=== PATIENT | female | born 1995 | race Caucasian/White ===

== ENCOUNTER 2016-08-12 10:44 | Inpatient (IN) | payer OTHER ==
[2015-06-14 14:26] VITALS: BMI 26.5
--- NOTE | 2016-08-12 17:09 | HISTPHYS ---
- HISTORY OF PRESENT ILLNESS Age: 21 Estimated Due Date: 08/17/16 Gestational Age: 39 : 2 Para: 1 Patient Presents to:: Labor & Delivery Presents for:: Induction of Labor Current : GBS + - REVIEW OF SYSTEMS ROS Negative Except As Marked: Yes ROS Negative except as marked Reports/Denies: Reports: Movement. Denies: Leaking Fluid, Shortness of Breath, Fever, Chills, Chest Pain, Cardiovascular Complaints, Respiratory Complaints, GI Comlaints Pain: Reports: None - ALLERGIES Allergies Allergy/AdvReac Type Severity Reaction Status Date / Time No Known Allergies Allergy Verified 07/21/16 19:41 - PAST MEDICAL HISTORY Reports: No Significant History - PAST SURGICAL HISTORY Reports: None - SOCIAL HISTORY Smoking Status: Former smoker Social History: Denies: Amphetamine Use, Alcohol Use, Barbiturate Use, Benzodiazipine Use - GENITOURINARY HISTORY Gynecologic History: Reports: Sexually Transmitted Infections (chlamydia during ) 1 Sex: Female Weight: 6-4 Weeks Gestation: 39 Complications with or Delivery: Reports: Other (see Comment) /Delivery Problems Comment (if applicable): OLIGO - PHYSICAL EXAM Vital Signs:: Temperature: () HR: () RR: () BP: () Pulse Ox: () GENERAL: Alert, Oriented, No Acute Distress CARDOVASCULAR/CHEST: Normal RESPIRATORY: Normal - CTA ABDOMEN: Gravid, Non-Tender GENITOURINARY: Normal EXTERMITIES: Moves All Extremeties PRISCILLA'S SIGN: negative: Bilateral Dilation (cm): 2.5 Effacement (%): 60 Station: -4 Heart Rate: 145 Category I Contractions: Irregular Membranes: Intact - ASSESSMENT (ACTIVE PROBLEMS) (1) 39 weeks gestation of Acute Z3A.39 - 39 WEEKS GESTATION OF (2) Elective induction of labor planned Acute [id number] - - PLAN Admit, Consent, Monitoring, GBS Prophylaxis, Induction of Labor (in AM. will hold off on cervidil due to cervical dilation.), Labs, Pain Management
[2016-08-12] MEDS ORDERED: LR 500 ML IV PRN (17:14)
[2016-08-12] MEDS ORDERED: SODIUM CHLORIDE 0.9% 3 ML FLUSH FLUSH PRN (17:14)
[2016-08-12] MEDS ORDERED: DINOPROSTONE 10 MG VAGINAL INSERT PV ONE (17:14)
[2016-08-12] MEDS ORDERED: SODIUM CHLORIDE 0.9% 3 ML FLUSH FLUSH SCH ×2 (17:14→18:00)
[2016-08-12] MEDS ORDERED: Aluminum;Magnesium;Simethicone 30 ML UDC PO PRN (17:14)
[2016-08-12] MEDS ORDERED: ACETAMINOPHEN 325 MG/TAB TABLET PO PRN (17:14)
[2016-08-12] MEDS ORDERED: ZOLPIDEM TARTRATE 5 MG TAB PO PRN (17:14)
[2016-08-12] MEDS ORDERED: BUTORPHANOL 1 MG/ML VIAL IV PRN (17:14)
[2016-08-12] MEDS: LR 1,000 ML IV SCH (17:30)
[2016-08-12] MEDS ORDERED: Vaccine Screening Complete SCH (18:00)
[2016-08-12] MEDS ORDERED: PENICILLIN IV ONE (18:00)
[2016-08-12] MEDS ORDERED: NS IV ONE (18:00)
[2016-08-12 18:05] LABS: AUTOMATED BASOPHIL 0.6 % (0-2); AUTOMATED EOSINOPHIL 0.7 % (0-5); AUTOMATED LYMPH 20.2 % (17-44); AUTOMATED MONOCYTE 6.9 % (3-10); AUTOMATED NEUTROPHIL 71.6 % (45-76); MPV 11.3 fL (7.4-10.4)
[2016-08-12] MEDS ORDERED: LIDOCAINE 1% 30 ML VIAL (PRESERVATIVE FREE) ONE (18:17)
[2016-08-12] MEDS ORDERED: OXYTOCIN 1,000 ML IV ONE (18:17)
[2016-08-12] MEDS ORDERED: NS IV SCH (22:00)
[2016-08-12] MEDS ORDERED: PENICILLIN IV SCH (22:00)
[2016-08-13] MEDS: LR 1,000 ML IV SCH ×2 (00:51→09:14)
[2016-08-13] MEDS ORDERED: OXYTOCIN 1,000 ML IV SCH (06:00)
[2016-08-13] MEDS ORDERED: AMPICILLIN 2 GM in NS 100 ML IV ONE (06:00)
--- NOTE | 2016-08-13 08:43 | OBGYNPROG ---
- Exam Vital Signs: Temperature: 97.8 F (08/13/16 00:49) HR: 78 (08/13/16 00:49) RR: 20 (08/13/16 00:49) BP: 117/59 (08/13/16 00:49) Pulse Ox: () Heart Rate: 145 Reactive Contraction Pattern: Regular Dilation (cm): 4 Effacement (%): 80 Station: -2 Membranes: AROM Amniotic Fluid: Clear - Plan Continue Present Management
[2016-08-13] MEDS ORDERED: Fentanyl/Bupivacaine 100 ML EPI ONE (09:16)
[2016-08-13] MEDS: AMPICILLIN 1 GM in NS 100 ML IV SCH ×2 (09:57→14:00)
[2016-08-13] MEDS ORDERED: LIDOCAINE 2% 10 ML (PRESERVATIVE FREE) VIAL INF ONE (10:00)
[2016-08-13] MEDS ORDERED: ONDANSETRON HCL 4 MG/2 ML VIAL IV PRN (10:21)
[2016-08-13] MEDS ORDERED: LR 500 ML IV PRN (10:21)
[2016-08-13] MEDS ORDERED: LR 500 ML IV ONE (10:21)
[2016-08-13] MEDS ORDERED: NALOXONE 0.4 MG/ML AMPULE IV PRN (10:21)
[2016-08-13] MEDS ORDERED: METOCLOPRAMIDE 10 MG/2 ML VIAL IV PRN (10:21)
[2016-08-13] MEDS ORDERED: EPHEDrine 50 MG/ML VIAL IV PRN (10:21)
[2016-08-13] MEDS ORDERED: DIPHENHYDRAMINE 50 MG/ML VIAL IV PRN (10:21)
--- NOTE | 2016-08-13 10:23 | HIM.ANES ---
Anesthesia Evaluation & Plan Diagnoses: labor pain Consented Procedure: labor epidural Surgeon:: Ronit Martínez - Focused Review of Systems Cardiac History: No: Hx Hypertension, Hx Cardiac Disorders EKG Rhythm: Sinus Rhythm HEENT: Yes: Hx Vision Problem (GLASSES), Other HEENT Problems Respiratory: No: Hx Asthma Gastrointestinal: No: Hx Liver disease, Hx Gastrointestinal Disorders Neurological/Musculoskeletal: No: HX Cerebrovascular Accident, Hx Neurological Disorders Psychological: No Hx Mental/Emotional Disorders Blood/Autoimmune: No: Hx Blood Transfusions, Hx AIDS, Hx Hepatitis (type) Smoking Status: Former smoker Past Social History: Denies: Amphetamine Use, Alcohol Use, Barbiturate Use, Benzodiazipine Use - Focused Physical Exam NPO since: after Midnight Mallampati: Class II Thyromental Distance: Greater than 3 Neck: Full Range of Motion Cardiovascular/Chest: Normal (RRR no mumurs or rubs.) Respiratory: Lungs clear. negative: Rhonchi, Wheezing Any problems with anesthesia, including nausea and vomiting?: No Any relatives with a history of Malignant Hyperthermia?: No Does patient have a history of Malignant Hyperthermia?: No Beta Shazia given (if appropriate): N/A Does the patient have a history of Motion Sickness-: No Other: Problem List Problem Status Onset 39 weeks gestation of Acute Elective induction of labor planned Acute Vaginal delivery Active 31 weeks gestation of Acute Back pain affecting in third trimester Acute Cellulitis of left buttock Acute Cervicitis Acute Cramping affecting , antepartum Acute CBC/BMP/Other 08/12/16 17:35 Allergies Allergy/AdvReac Type Severity Reaction Status Date / Time No Known Allergies Allergy Verified 08/12/16 17:15 Home Medications Medication Instructions Recorded Last Taken Type Vits W-Ca,Fe,FA(<1Mg) 1 each PO DAILY 06/19/16 08/11/16 History [] Ranitidine HCl [Zantac 75] 1 tab PO DAILY 08/12/16 08/11/16 History Height and Weight Patient's height 5 ft 3 in Patient's weight 85.275 kg BMI 26.5 Vital Signs Temperature 97.8 F 08/13/16 00:49 Pulse Rate 78 08/13/16 00:49 Respiratory Rate 20 08/13/16 00:49 Blood Pressure 117/59 L 08/13/16 00:49 Pulse Oxygen Saturation METS - Level of Activity: Climbing stairs(1 flight),walking level ground, running short distance - Anesthetic Plan Anesthesia Type: Epidural ASA Class: 2 -: I have examined this patient and reviewed the medical record. The patient has been assessed prior to anesthesia. Risks and benefits of anesthesia and anesthetic technique options have been discussed and all questions answered. The patient accepts the risk and desires me to proceed with the planned anesthetic.
--- NOTE | 2016-08-13 10:24 | HIM.ANESP ---
[id number]. POSTOPERATIVE DIAGNOSIS: Same PROCEDURE: Epidural PERFORMING PROVIDER: Yumiko Givens MD DIAGNOSIS: Labor SURGEON: Mauricio TIME OUT: 1001 Anesthesia START time: 1001 Anesthesia STOP (Delivery) Time : 16:53 MEDICATIONS: INF Bupivacaine 0.125% + Fentanyl 3mcg/ml ml/hr NEEDLE: Tuohy 17G STERILE BARRIERS: sterile x 3, mask, sterile gloves. APPROACH: Midline ATTEMPTS:1 COMPLICATIONS: None. BLOOD LOSS: 0 cubic centimeters. PROCEDURE FINDINGS AND TECHNIQUE: At the request of the patient and display specialist , an Epidural Block was performed for labor pain relief. Epidural Risk, benefits and alternatives of the procedure were explained and questions answered. Informed consent was obtained, confirmed with patient and on chart. Time out was performed. Contraction, Pulse oximetry, EKG and BP monitoring were established. The patient is a sitting position and lumbar area was prepped and draped in a sterile manner. Skin anesthesia was obtained with 1% Xylocaine infiltration. The Epidural was done in the usual manner. A Tuohy needle was inserted with loss of resistance to NS @ 5cm. Local anesthetic was injected in incremental volumes with negative aspirations throughout, Bolus dose: Lidocaine 1 % 5 cc. There was no pain on injection. Epidural catheter threaded 5 cm into epidural space. Test dose Lidocaine 1.5 % with epinephrine 1:200,000, 3 ml via epidural catheter. Negative test dose. SaO2 98% EKG SR Loading Dose 0 mcg/ml Fentanyl Infusing Dose Bupivacaine 0.125% + Fentanyl 3mcg/ml ml/hr See Watch Child Record (chart) Patient tolerated the procedure well without complications.
[2016-08-13] MEDS ORDERED: Fentanyl/Bupivacaine 100 ML EPI SCH (11:00)
--- NOTE | 2016-08-13 13:25 | OBGYNPROG ---
- Exam Vital Signs: Temperature: 97.8 F (08/13/16 00:49) HR: 78 (08/13/16 12:25) RR: 20 (08/13/16 12:25) BP: 117/59 (08/13/16 12:25) Pulse Ox: () Heart Rate: 145 Moderate Variability Contraction Pattern: Regular Dilation (cm): 8 Effacement (%): 80 Station: -2 - Plan Continue Present Management
--- NOTE | 2016-08-13 15:44 | OBGYNPROG ---
- Exam Vital Signs: Temperature: 97.8 F (08/13/16 00:49) HR: 78 (08/13/16 12:25) RR: 20 (08/13/16 12:25) BP: 117/59 (08/13/16 12:25) Pulse Ox: () Heart Rate: 145 Moderate Variability Contraction Pattern: Regular Dilation (cm): 8.5 Effacement (%): 90 Station: -1 - Plan Continue Present Management, Continue High Dose Pitocin
[2016-08-13] MEDS ORDERED: OXYCODONE HCL 5 MG TABLET PO PRN ×2 (17:16)
[2016-08-13] MEDS ORDERED: OXYTOCIN 1,000 ML IV ONE (17:16)
[2016-08-13] MEDS ORDERED: LANOLIN OINTMENT 0.25 OZ TUBE TOP PRN (17:16)
[2016-08-13] MEDS ORDERED: SODIUM CHLORIDE 0.9% 3 ML FLUSH FLUSH PRN (17:16)
[2016-08-13] MEDS ORDERED: ZOLPIDEM TARTRATE 5 MG TAB PO PRN (17:16)
[2016-08-13] MEDS ORDERED: DIBUCAINE OINTMENT 1 OZ TUBE TOP PRN (17:16)
--- NOTE | 2016-08-13 17:19 | OBDELNOTE ---
Delivery Note - Problem/Diagnosis (1) Single live Status: Acute (2) Vaginal delivery Status: Acute (3) Macrosomia Status: Acute (4) Macrosomia affecting management of mother, antepartum Status: Acute - Admitting Diagnosis Reason for Visit: Induction of Labor Other Reason for Visit: CERVIDIL Admission Date: 08/12/16 Admission time: 17:10 Gestational Age: 39 - Procedures Procedure(s): Non-Stress Test Labor Anesthesia/Analgesia: Epidural Date: 08/13/16 Spontaneous Vaginal Delivery Presentation: Vertex Episiotomy: None Laceration: None EBL: 150 Fluid: Clear Placenta: Spontaneous Description: Normal Cord: 3 Vessels - Infant Data Infant Sex: Female Weight: 4.139 kg (1min): 9 (5min): 10 Feeding Plans for : Breast Plans Circumcision: No [place] Complications: No Complications [place] to:: LDRP/Mother's Room - /Operative Complications /Op Complications: None Discharge Planning - REASON FOR ADMISSION Patient Presents to:: Labor & Delivery Reason for Visit: Induction of Labor Other Reason for Visit: CERVIDIL - DISCHARGE INSTRUCTIONS
--- NOTE | 2016-08-13 17:20 | PCM.DCS92 ---
- Primary/Secondary Discharge Diagnoses (1) Single live Acute Z37.0 - SINGLE LIVE (2) Vaginal delivery Acute O80 - ENCOUNTER FOR FULL-TERM UNCOMPLICATED DELIVERY (3) Macrosomia Acute P08.0 - EXCEPTIONALLY LARGE BABY (4) Macrosomia affecting management of mother, antepartum Acute O36.60X0 - MATERNAL CARE FOR EXCESS GROWTH, UNSP TRIMESTER, UNSP single or unspecified fetus T - HOSPITAL COURSE /Op Complications: None - DISCHARGE INSTRUCTIONS Discharge Disposition: Home Discharge Condition: Good Cognitive Discharge Status: Unimpaired Fuctional Discharge Status: Independent Patient Leaving with Prescriptions?: Yes Home Medications/ New Prescriptions: New Hydrocodone Bit/Acetaminophen [Hydrocodon-Acetaminophen 5-325] 1 - 2 tab PO Q4H PRN #30 tab PRN Reason: Pain Ibuprofen Tablet [Motrin] 800 mg PO TID #30 tab No Action Vits W-Ca,Fe,FA(<1Mg) [] 1 each PO DAILY Ranitidine HCl [Zantac 75] 1 tab PO DAILY - Diet Diet at Discharge: Regular - Activity Activity: Pelvic Rest, No Driving No Driving for: 2 weeks - Instructions Call Physician for: Sudden/Sever Chest Pain, Foul Smelling Discharge, Pain/ Redness in Calf/Leg, Temperature Above 100.4 - DC Summary Notes Discharge Medications: *See "Discharge Medication List" for a complete list of Home Medications and Discharge Medications.* Obstetric Hospital Course - Admitting Diagnosis Reason for Visit: Induction of Labor Other Reason for Visit: CERVIDIL Admission Date: 08/12/16 Admission time: 17:10 Gestational Age: 39 - Procedures Procedure(s): Non-Stress Test Labor Anesthesia/Analgesia: Epidural Date: 08/13/16 Spontaneous Vaginal Delivery Presentation: Vertex Episiotomy: None Laceration: None EBL: 150 Fluid: Clear Placenta: Spontaneous Description: Normal Cord: 3 Vessels - Data Sex: Female Weight: 4.139 kg (1min): 9 (5min): 10 Feeding Plans for : Breast Plans Circumcision: No [place] Complications: No Complications to:: LDRP/Mother's Room - /Operative Complications /Op Complications: None
[2016-08-13] MEDS ORDERED: LANOLIN OINTMENT 0.25 OZ TUBE TOP ONE (17:26)
[2016-08-13] MEDS: IBUPROFEN 800 MG TAB PO SCH (17:51)
[2016-08-13] MEDS ORDERED: SODIUM CHLORIDE 0.9% 3 ML FLUSH FLUSH SCH (18:00)
[2016-08-13] MEDS ORDERED: Pharmacy Order Set Alert SCH (18:00)
[2016-08-13] MEDS ORDERED: Docusate Sodium 100 MG CAP PO SCH (21:00)
[2016-08-14] MEDS: IBUPROFEN 800 MG TAB PO SCH ×3 (00:11→14:49)
[2016-08-14] MEDS ORDERED: LR 1,000 ML IV SCH (00:16)
[2016-08-14 06:15] VITALS: BP 139/77; PULSE 75; TEMP 98.1
--- NOTE | 2016-08-14 08:24 | OBGYNPROG ---
- Subjective Post Day: 1 Reports: Ambulating, Tolerating Regular Diet, Voiding Freely, Moderate Lochia. Denies: Complaints Pain: Reports: Well Managed - Objective Vital Signs: Temperature: 98.1 F (08/14/16 06:14) HR: 75 (08/14/16 06:14) RR: 16 (08/14/16 06:14) BP: 139/77 (08/14/16 06:14) Pulse Ox: () General: Alert, Oriented, No Acute Distress ABDOMEN: Non-Distended, Non-Tender, Soft Fundus: At Umbilicus, Firm. Denies: Tender Lochia: Moderate Bladder: Voiding & Emptying EXTERMITIES: Moves All Extremeties. Denies: Pain/Tenderness OBGYN Progress Note - ASSESSMENT (1) Vaginal delivery Status: Acute Code(s): O80 - ENCOUNTER FOR FULL-TERM UNCOMPLICATED DELIVERY Comment: Doing well - PLAN Routine Care
== END 2016-08-14 18:33 | disposition home or self-care (01) | DRG 775 ==
LOC: MASU 17:00
PROVIDERS: ADMIT Obstetrics & Gynecology; ATTEND Obstetrics & Gynecology
PROC: 10E0XZZ Delivery of Products of Conception, External Approach (ICD-10-PCS; principal; 2016-08-13)
PROC: 10907ZC Drainage of Amniotic Fluid, Therapeutic from Products of Conception, Via Natural or Artificial Opening (ICD-10-PCS; 2016-08-13)
PROC: 3E0S3CZ (ICD-10-PCS; 2016-08-13)
DX: O36.63X0 Maternal care for excessive fetal growth, third trimester, not applicable or unspecified (principal); O99.824 Streptococcus B carrier state complicating childbirth; Z3A.39 39 weeks gestation of pregnancy; Z37.0 Single live birth; Z87.891 Personal history of nicotine dependence
CPT/HCPCS: 59400; 62318; 81002; 85014; 85018; 85025; 86592; 86850; 86900; 86901; 96360; 96361; 96365; 96366; 96368; J0290; J2001; J2540; J2590; J3490; J7030